=== PATIENT | female | born 1985 | race Caucasian/White ===

== ENCOUNTER 2018-02-17 05:05 | Inpatient (IN) ==
[2018-02-17] MEDS ORDERED: Oxytocin 30 Units/500ml Premix 30 UNITS/500 ML BAG IV.SIG PRN (05:35)
[2018-02-17] MEDS ORDERED: Oxytocin 30 Units/500ml Premix 30 UNITS/500 ML BAG IV.SIG ONE (05:36)
[2018-02-17] MEDS ORDERED: Sodium Chlor 0.9% Inj 500 ML IV.SIG PRN (05:36)
[2018-02-17] MEDS ORDERED: fentaNYL Citrate Inj 100 MCG/2 ML Ampul IV.PUSH PRN ×2 (05:36)
[2018-02-17] MEDS ORDERED: Naloxone Inj 0.4 MG/ML Vial IV.PUSH PRN ×2 (05:36→13:35)
[2018-02-17] MEDS ORDERED: Sod Chloride 0.9% Inj 1,000 ML IV.CONT PRN (05:36)
[2018-02-17] MEDS ORDERED: Citric Acid/Sodium Citrate Liq 30 ML UDC PO SCH (05:45)
[2018-02-17 07:05] LABS: Bilirubin,Urine Negative (Negative); Clarity,Urine Clear (Clear); Color,Urine Yellow (Yellw/Straw); Glucose,Urine (UA) Negative (Negative); Leukocyte Esterase,Urine Negative (Negative); Mucus,Urine Few /lpf (Occasional); Nitrite,Urine Negative (Negative); Specific Gravity,Urine 1.019 (1.002-1.035); Squamous Epithelial Cell,Urine 1 /hpf (0-5)
[2018-02-17 07:07] LABS: Baso # (Auto) 0.1 th/mm3 (0.0-0.2); Baso % (Auto) 0.9 % (0.0-2.0); Eos # (Auto) 0.3 th/mm3 (0.0-0.4); Eos % (Auto) 3.2 % (0.0-4.0); Hematocrit 32.8 % (35.0-46.0); Hemoglobin 10.9 gm/dL (11.6-15.3); Lymph # (Auto) 1.6 th/mm3 (1.0-4.8); Lymph % (Auto) 19.8 % (9.0-44.0); Mean Corpuscular HGB Conc 33.2 % (32.0-36.0); Mean Corpuscular Hemoglobin 28.6 pg (27.0-34.0); Mean Corpuscular Volume 86.3 fL (80.0-100.0); Mean Platelet Volume 10.9 fL (7.0-11.0); Mono # (Auto) 0.9 th/mm3 (0.0-0.9); Mono % (Auto) 10.7 % (0.0-8.0); Neut # (Auto) 5.4 th/mm3 (1.8-7.7); Neut % (Auto) 65.4 % (16.0-70.0); Platelet Count 134 th/mm3 (150-450); Red Cell Distribution Width 13.7 % (11.6-17.2); White Blood Count 8.3 th/mm3 (4.0-11.0)
[2018-02-17 07:10] LABS: Amphetamine Urine With Conf Neg (Neg); Benzodiazepine Urine With Conf Neg (Neg)
[2018-02-17] MEDS ORDERED: fentaNYL 2MCG-Bupiv 0.125% Epi 150 ML EPIDURAL ONE (07:59)
[2018-02-17] MEDS ORDERED: Lidocaine PF 1% Inj 5 ML Vial ONE ×3 (08:03→14:59)
[2018-02-17] MEDS ORDERED: Lidocaaine 1.5%/Epinephrine 1:200,000 PF Inj 5 ML Amp ONE (08:03)
[2018-02-17] MEDS ORDERED: Bisacodyl 10 MG Supp RECTAL PRN (13:35)
[2018-02-17] MEDS ORDERED: Oxytocin 30 Units/500ml Premix 30 UNITS/500 ML BAG IV.CONT PRN (13:35)
[2018-02-17] MEDS ORDERED: Witch Hazel 50%/Glyderin 12.5% 40 Pad Jar RECTAL PRN (13:35)
[2018-02-17] MEDS ORDERED: Benzocaine 20% Top Spray 60 ML Can TOPICAL PRN (13:35)
[2018-02-17] MEDS ORDERED: Zolpidem Tartrate 5 MG Tablet PO PRN (13:35)
[2018-02-17] MEDS ORDERED: Acetaminophen 325 MG Tablet PO PRN (13:35)
--- NOTE | 2018-02-17 13:39 | P.OBDELI ---
Weeks Gestation: 39 Patient Started Active Labor: No Medical Induction of Labor: Yes Medical Induction Start Date: 02/17/18 Medical Induction Start Time: 06:00 Artificial Rupture of Membrane: Yes Artificial ROM Date: 02/17/18 Artificial ROM Time: 08:00 Anesthesia: Epidural Episiotomy: none Vaginal Delivery: Normal Presentation: Occiput anterior Nuchal Cord: x1 Delayed Cord Clamping (45 sec): Yes Laceration: Perineal, 2 deg Repair: Chromic interrupted, Chromic running Estimated blood loss (mL): 300 Infant: Female
[2018-02-17] MEDS ORDERED: Diphtheria/Tetanus/Pertussis Vaccine Inj 0.5 ML Syringe IM ONE (16:00)
[2018-02-17] MEDS ORDERED: Measles/Mumps/Rubella Vaccine Inj 0.5 ML Vial SQ ONE (16:00)
--- NOTE | 2018-02-17 16:02 | P.PNOB ---
Subjective Post day: 0 Interval history: Pt had spontaneous vaginal delivery today. Uncomplicated course. She has a h/o PPH. I was called to evaluate because of persistent vaginal bleeding . Objective Vital Signs/I&O: Vital Signs 02/17/18 06:00 02/17/18 06:15 02/17/18 06:30 Temperature 97.7 F Pulse Rate 77 67 Respiratory Rate 18 Blood Pressure 112/74 121/72 02/17/18 06:46 02/17/18 07:01 02/17/18 07:30 Temperature Pulse Rate 66 59 L Respiratory Rate 18 Blood Pressure 113/71 116/70 02/17/18 08:09 02/17/18 08:16 02/17/18 08:21 Temperature Pulse Rate 65 69 73 Respiratory Rate Blood Pressure 120/73 120/78 120/65 02/17/18 08:23 02/17/18 08:26 02/17/18 08:59 Temperature 98.0 F 98.0 F Pulse Rate 69 69 Respiratory Rate 16 16 Blood Pressure 119/72 126/79 02/17/18 09:25 02/17/18 09:40 02/17/18 10:00 Temperature 97.8 F Pulse Rate 69 60 90 Respiratory Rate 18 Blood Pressure 133/84 105/73 116/86 02/17/18 10:10 02/17/18 10:25 02/17/18 11:00 Temperature 98.2 F Pulse Rate 63 67 66 Respiratory Rate 16 Blood Pressure 114/75 119/79 02/17/18 11:10 02/17/18 11:20 02/17/18 11:35 Temperature Pulse Rate 66 67 68 Respiratory Rate 18 Blood Pressure 121/73 100/62 02/17/18 11:40 02/17/18 12:00 02/17/18 12:01 Temperature 98.0 F Pulse Rate 65 63 72 Respiratory Rate 18 Blood Pressure 96/58 L 101/59 L 02/17/18 12:10 02/17/18 12:15 02/17/18 12:25 Temperature Pulse Rate 75 66 79 Respiratory Rate Blood Pressure 114/60 02/17/18 12:35 02/17/18 12:50 02/17/18 12:58 Temperature Pulse Rate 65 76 64 Respiratory Rate 20 Blood Pressure 116/76 115/73 02/17/18 12:59 02/17/18 13:05 02/17/18 13:40 Temperature 98.2 F 97.7 F Pulse Rate 68 77 Respiratory Rate 18 Blood Pressure 113/70 111/72 02/17/18 14:01 02/17/18 14:20 02/17/18 14:35 Temperature Pulse Rate 75 88 76 Respiratory Rate 20 18 18 Blood Pressure 116/74 127/72 108/75 02/17/18 14:46 02/17/18 14:50 02/17/18 15:16 Temperature Pulse Rate 82 81 71 Respiratory Rate 16 18 Blood Pressure 116/75 88/50 L 120/77 02/17/18 15:31 Temperature Pulse Rate 73 Respiratory Rate 18 Blood Pressure 117/67 Intake & Output 02/16/18 02/17/18 02/17/18 18:59 06:59 18:59 Weight 81.193 kg Result Diagrams: 02/17/18 06:20 Objective Remarks: GENERAL: Well-nourished, well-developed patient. CARDIOVASCULAR: Regular rate and rhythm without murmurs, gallops, or rubs. RESPIRATORY: Breath sounds equal bilaterally. No accessory muscle use. ABDOMEN/GI: Abdomen soft, non-tender. Fundus: slightly boggy, non-tender at umbilicus. GENITOURINARY: moderate bleeding. SVE: Fundal massage done, and uterine tone improved. About 150cc blood clot expelled from lower uterus/vagina. Still had vaginal bleeding I noted persisting bleeding from vaginal tear about 1cm at posterior forchette. 1% Lidocaine infiltrated and 2.0 Vicyl used to repair vaginal laceration. Well tolerated by patient. Dr Ramirez informed. 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 Stop: 02/21/18 05:44 Diphtheria/Pertussis/Tetanus Vacc (Boostrix Vaccine Inj) 0.5 ml IM .ONCE ONE Stop: 02/17/18 16:01 Fentanyl Citrate (Fentanyl Inj) 50 mcg IV.PUSH Q1H PRN PRN Reason: Pain Scale 3 - 5 Fentanyl Citrate (Fentanyl Inj) 100 mcg IV.PUSH Q1H PRN PRN Reason: PAIN SCALE 6 TO 10 Oxytocin (Pitocin 30 Units/Ns 500 Ml Premix) 30 units in 500 mls @ 2 mls/hr IV.SIG TITRATE PRN; Protocol PRN Reason: For induction of labor Last Admin: 02/17/18 07:00 Dose: 2 milliunit/min, 2 mls/hr Sodium Chloride (Ns Inj) 1,000 mls @ 100 mls/hr IV.CONT .Q10H PRN PRN Reason: SEE LABEL COMMENTS Lactated Ringer's (Lr 1000 Ml Inj) 1,000 mls @ 125 mls/hr IV.CONT .Q8H AHMET Last Admin: 02/17/18 12:02 Dose: 125 mls/hr Lactated Ringer's (Lr 1000 Ml Inj) 1,000 mls @ 3,000 mls/hr IV.SIG UNSCH PRN PRN Reason: compromise or epidural Last Admin: 02/17/18 08:13 Dose: 3,000 mls/hr Oxytocin (Pitocin 30 Units/Ns 500 Ml Premix) 30 units in 500 mls @ 100 mls/hr IV.CONT UNSCH PRN PRN Reason: Heavy bleeding Lactulose (Lactulose Liq) 30 ml PO DAILY PRN PRN Reason: SEVERE CONSITIPATION Lidocaine HCl (Xylocaine 1% Inj) 10 ml INFILTRATN PRN PRN PRN Reason: For episiotomy repair Stop: 02/19/18 05:35 Lidocaine HCl (Xylocaine 1% Inj) 0.1 ml I-DERMAL PRN PRN PRN Reason: For IV start Stop: 02/20/18 05:35 Measles/Mumps/Rubella Vaccine Live (M-M-R Ii Vaccine Inj) 0.5 ml SQ .ONCE ONE Stop: 02/17/18 16:01 Mineral Oil (Muri-Lube Oil) 10 ml TOPICAL PRN PRN PRN Reason: PRN perineal massage Naloxone HCl (Narcan Inj) 0.1 mg IV.PUSH Q2M PRN PRN Reason: for opiate reversal Naloxone HCl (Narcan Inj) 0.1 mg IV.PUSH Q2M PRN PRN Reason: for opiate reversal Ondansetron HCl (Zofran Inj) 4 mg IV.PUSH Q6H PRN PRN Reason: NAUSEA OR VOMITING Last Admin: 02/17/18 10:35 Dose: 4 mg Ondansetron HCl (Zofran Odt) 4 mg PO Q6H PRN PRN Reason: NAUSEA OR VOMITING Oxycodone/Acetaminophen (Percocet 5/325 Mg) 1 tab PO Q4H PRN PRN Reason: PAIN SCALE 3 TO 5 Oxycodone/Acetaminophen (Percocet 5/325 Mg) 2 tab PO Q4H PRN PRN Reason: PAIN SCALE 6 TO 10 Senna/Docusate Sodium (Jeanette-Colace) 1 tab PO BID AHMET Sennosides (Senokot) 17.2 mg PO Q12H PRN PRN Reason: Moderate Constipation Sodium Chloride (Ns Flush) 2 ml IV.FLUSH BID AHMET Sodium Chloride (Ns Flush) 2 ml IV.FLUSH PRN PRN PRN Reason: FLUSH AFTER USING IV ACCESS Witch Leticia/Glycerin (Tucks Pads) 1 applicatio RECTAL QID PRN PRN Reason: HEMORRHOIDS Zolpidem Tartrate (Ambien) 5 mg PO HS PRN PRN Reason: SLEEP Assessment and Plan - Diagnosis (1) Vaginal delivery Code(s): O47.1 - False labor at or after 37 completed weeks of gestation Status: Acute (2) Vaginal laceration Code(s): S31.41XA - Laceration without foreign body of vagina and vulva, initial encounter Status: Acute
[2018-02-18] MEDS: Senna/Docusate Sodium 8.6/50 MG Tablet PO SCH (05:25)
[2018-02-18 07:57] VITALS: PULSE 72; RESP 18; TEMP 97.8
[2018-02-18 07:58] VITALS: BP 105/62
--- NOTE | 2018-02-18 12:18 | P.PNOB ---
Subjective Post day: 1 Objective Vital Signs/I&O: Vital Signs 02/17/18 12:25 02/17/18 12:35 02/17/18 12:50 Temperature Pulse Rate 79 65 76 Respiratory Rate Blood Pressure 116/76 115/73 02/17/18 12:58 02/17/18 12:59 02/17/18 13:05 Temperature 98.2 F Pulse Rate 64 68 Respiratory Rate 20 Blood Pressure 113/70 02/17/18 13:40 02/17/18 14:01 02/17/18 14:20 Temperature 97.7 F Pulse Rate 77 75 88 Respiratory Rate 18 20 18 Blood Pressure 111/72 116/74 127/72 02/17/18 14:35 02/17/18 14:46 02/17/18 14:50 Temperature Pulse Rate 76 82 81 Respiratory Rate 18 16 Blood Pressure 108/75 116/75 88/50 L 02/17/18 15:16 02/17/18 15:31 02/17/18 15:46 Temperature Pulse Rate 71 73 90 Respiratory Rate 18 18 Blood Pressure 120/77 117/67 127/74 02/17/18 16:35 02/17/18 16:46 02/17/18 20:00 Temperature 98.1 F 98.0 F 97.9 F Pulse Rate 80 81 85 Respiratory Rate 16 16 16 Blood Pressure 113/74 110/66 114/70 02/18/18 07:56 Temperature 97.8 F Pulse Rate 72 Respiratory Rate 18 Blood Pressure 105/62 Result Diagrams: 02/17/18 06:20 Objective Remarks: GENERAL: Well-nourished, well-developed patient. CARDIOVASCULAR: Regular rate and rhythm without murmurs, gallops, or rubs. RESPIRATORY: Breath sounds equal bilaterally. No accessory muscle use. ABDOMEN/GI: Abdomen soft, non-tender. Fundus: Firm, non-tender at umbilicus. GENITOURINARY: Light to moderate bleeding. EXTREMITIES: No cyanosis or edema, non-tender, without signs of DVT. Medications and IVs: Active Medications Acetaminophen (Tylenol) 650 mg PO Q4H PRN PRN Reason: PAIN SCALE 1 TO 2 Last Admin: 02/17/18 14:14 Dose: 650 mg Al Hydroxide/Mg Hydroxide (Milk Of Magnesia Liq) 30 ml PO Q12H PRN PRN Reason: Mild Constipation Benzocaine (Americaine 20% Top [place]) 1 spray TOPICAL Q4H PRN PRN Reason: For Perineum Discomfort Last Admin: 02/17/18 17:11 Dose: 1 spray Bisacodyl (Dulcolax Supp) 10 mg RECTAL DAILY PRN PRN Reason: SEVERE CONSITIPATION Citric Acid/Sodium Citrate (Sodium Citrate/Citric Acid Liq) 30 ml PO UNCLAIMED PROPERTY MANAGER [facility] Stop: 02/21/18 05:44 Fentanyl Citrate (Fentanyl Inj) 50 mcg IV.PUSH Q1H PRN PRN Reason: Pain Scale 3 - 5 Fentanyl Citrate (Fentanyl Inj) 100 mcg IV.PUSH Q1H PRN PRN Reason: PAIN SCALE 6 TO 10 Oxytocin (Pitocin 30 Units/Ns 500 Ml Premix) 30 units in 500 mls @ 2 mls/hr IV.SIG TITRATE PRN; Protocol PRN Reason: For induction of labor Last Admin: 02/17/18 07:00 Dose: 2 milliunit/min, 2 mls/hr Sodium Chloride (Ns Inj) 1,000 mls @ 100 mls/hr IV.CONT .Q10H PRN PRN Reason: SEE LABEL COMMENTS Lactated Ringer's (Lr 1000 Ml Inj) 1,000 mls @ 125 mls/hr IV.CONT .Q8H [facility] Last Admin: 02/17/18 19:34 Dose: Not Given Lactated Ringer's (Lr 1000 Ml Inj) 1,000 mls @ 3,000 mls/hr IV.SIG UNSCH PRN PRN Reason: compromise or epidural Last Admin: 02/17/18 08:13 Dose: 3,000 mls/hr Oxytocin (Pitocin 30 Units/Ns 500 Ml Premix) 30 units in 500 mls @ 100 mls/hr IV.CONT UNSCH PRN PRN Reason: Heavy bleeding Lactulose (Lactulose Liq) 30 ml PO DAILY PRN PRN Reason: SEVERE CONSITIPATION Lidocaine HCl (Xylocaine 1% Inj) 10 ml INFILTRATN PRN PRN PRN Reason: For episiotomy repair Stop: 02/19/18 05:35 Lidocaine HCl (Xylocaine 1% Inj) 0.1 ml I-DERMAL PRN PRN PRN Reason: For IV start Stop: 02/20/18 05:35 Mineral Oil (Muri-Lube Oil) 10 ml TOPICAL PRN PRN PRN Reason: PRN perineal massage Naloxone HCl (Narcan Inj) 0.1 mg IV.PUSH Q2M PRN PRN Reason: for opiate reversal Naloxone HCl (Narcan Inj) 0.1 mg IV.PUSH Q2M PRN PRN Reason: for opiate reversal Ondansetron HCl (Zofran Inj) 4 mg IV.PUSH Q6H PRN PRN Reason: NAUSEA OR VOMITING Last Admin: 02/17/18 10:35 Dose: 4 mg Ondansetron HCl (Zofran Odt) 4 mg PO Q6H PRN PRN Reason: NAUSEA OR VOMITING Last Admin: 02/18/18 11:58 Dose: 4 mg Oxycodone/Acetaminophen (Percocet 5/325 Mg) 1 tab PO Q4H PRN PRN Reason: PAIN SCALE 3 TO 5 Last Admin: 02/18/18 11:58 Dose: 1 tab Oxycodone/Acetaminophen (Percocet 5/325 Mg) 2 tab PO Q4H PRN PRN Reason: PAIN SCALE 6 TO 10 Last Admin: 02/18/18 05:42 Dose: 2 tab Senna/Docusate Sodium (Jeanette-Colace) 1 tab PO BID [facility] Last Admin: 02/18/18 05:25 Dose: Not Given Sennosides (Senokot) 17.2 mg PO Q12H PRN PRN Reason: Moderate Constipation Sodium Chloride (Ns Flush) 2 ml IV.FLUSH BID [facility] Last Admin: 02/18/18 05:25 Dose: Not Given Sodium Chloride (Ns Flush) 2 ml IV.FLUSH PRN PRN PRN Reason: FLUSH AFTER USING IV ACCESS Witch [place]/Glycerin (Tucks Pads) 1 applicatio RECTAL QID PRN PRN Reason: HEMORRHOIDS Last Admin: 02/17/18 17:11 Dose: 1 applicatio Zolpidem Tartrate (Ambien) 5 mg PO HS PRN PRN Reason: SLEEP Assessment and Plan - Plan PPD # 1 s/p , doing well...routine care
[2018-02-19] MEDS: Senna/Docusate Sodium 8.6/50 MG Tablet PO SCH (11:48)
[2018-02-19] MEDS ORDERED: Measles/Mumps/Rubella Vaccine Inj 0.5 ML Vial SQ ONE (14:00)
== END 2018-02-19 16:39 | disposition home or self-care (01) ==
LOC: H2E 05:05 → H1EA 16:02
PROVIDERS: ADMIT Obstetrics & Gynecology; ATTEND Obstetrics & Gynecology